=== PATIENT | female | born 1970 ===

== ENCOUNTER → 2023-10-31 06:32 | Day surgery (SDC) | payer BC, SELFPAY | LOC: GI 06:32 | PROVIDERS: ATTENDING PHYSICIAN Internal Medicine Gastroenterology | DX: Z12.11 Encounter for screening for malignant neoplasm of colon (principal); D12.2 Benign neoplasm of ascending colon; K63.5 Polyp of colon; K57.30 Diverticulosis of large intestine without perforation or abscess without bleeding; K64.8 Other hemorrhoids; R10.13 Epigastric pain; K21.9 Gastro-esophageal reflux disease without esophagitis; Q39.9 Congenital malformation of esophagus, unspecified; K44.9 Diaphragmatic hernia without obstruction or gangrene; Z86.010 Personal history of colon polyps | CPT/HCPCS: 45385; 43239; 88305; 88342 ==